=== PATIENT | female | born 1960 | race Hispanic/Latino ===

== ENCOUNTER 2018-09-18 10:19 | Emergency (ER) | payer SELFPAY ==
[2018-09-18] MEDS ORDERED: HABITROL TD PRN (11:12)
[2018-09-18] MEDS ORDERED: ATIVAN IV PRN ×3 (11:13)
[2018-09-18] MEDS ORDERED: VITAMIN B-1 100 MG, FOLVITE 1 MG, INFUVITE 10 ML, MAGNESIUM SULFATE 2 GM in NACL 0.9% 1... IV ONE (11:13)
--- NOTE | 2018-09-18 11:18 | Emergency Department Report ---
HPI - General Time Seen by Provider: 09/18/18 11:04 - HPI HPI: Room 17 The patient is a 58-year-old female presenting with a chief complaint of fall is on. Patient states she consumes approximately 1 pint of vodka daily and she last consumed just prior to coming to the ED. The patient is accompanied by her daughter who states the patient needs help with alcoholism. The patient is requesting placement in a detox facility. Patient complains of fatigue. Patient denies melena or bright red blood per rectum Location: [See above] Duration: [See above] Quality: [See above] Severity: [See above] Modifying factors: [see above] Context: [see above] Mode of transportation: [not driving] ED Past Medical Hx - Past Medical History Hx Arthritis: Yes Hx Psychiatric Treatment: Yes (Depression) Additional medical history: hypothyroid - Surgical History Additional Surgical History: L leg surgery. Neck. Sinus - Family History Family history: no significant - Social History Smoking Status: Current Every Day Smoker (1 pack per day) Substance Use Type: Alcohol (1 pint of vodka daily) - Medications Home Medications: Home Medications Medication Instructions Recorded Confirmed Last Taken Type Levothyroxine [Synthroid] 150 mcg PO QAM 10/09/14 10/09/14 10/08/14 History traZODone [Desyrel] 50 mg PO QHS 10/09/14 10/09/14 10/08/14 History Doxycycline Monohydrate 100 mg PO Q12H #42 capsule 04/08/15 Unknown Rx [Doxycycline Monohydrate CAP] ED Review of Systems ROS: Stated complaint: ALCOHOL ABUSE/MH EVAL Other details as noted in HPI Constitutional: no symptoms reported Eyes: denies: eye pain ENT: denies: throat pain Respiratory: no symptoms reported Cardiovascular: denies: chest pain Endocrine: no symptoms reported Gastrointestinal: denies: abdominal pain Physical Exam - Physical Exam Physical Exam: GENERAL: The patient is well-developed well-nourished female lying on stretcher not appearing to be in acute distress. [] HEENT: Normocephalic. Atraumatic. Extraocular motions are intact. Patient has moist mucous membranes. NECK: Supple. Trachea midline CHEST/LUNGS: Clear to auscultation. There is no respiratory distress noted. HEART/CARDIOVASCULAR: Regular. There is no tachycardia. There is no gallop rub or murmur. ABDOMEN: Abdomen is soft, nontender. Patient has normal bowel sounds. There is no abdominal distention. SKIN: There is no rash. There is no edema. There is no diaphoresis. NEURO: The patient is awake, alert, and oriented. The patient is cooperative. The patient has normal speech MUSCULOSKELETAL: There is no evidence of acute injury. RECTAL: Guaiac positive dark stool ED Medical Decision Making - Lab Data Result diagrams: 09/18/18 11:15 09/18/18 11:18 Laboratory Tests 09/18/18 09/18/18 09/18/18 11:15 11:18 11:18 WBC 8.9 RBC 1.85 L Hgb 7.6 L Hct 22.0 L MCV 119 H MCH 41 H MCHC 35 H RDW 14.0 Plt Count 116 L Lymph % (Auto) 24.2 [place] % (Auto) 4.1 Eos % (Auto) 0.6 Baso % (Auto) 0.5 Lymph # 2.2 [place] # 0.4 Eos # 0.1 Baso # 0.0 Seg Neutrophils % 70.6 H Seg Neutrophils # 6.3 Sodium 140 Potassium 3.3 L Chloride 94.7 L Carbon Dioxide 23 Anion Gap 26 BUN 8 Creatinine 0.5 L Estimated GFR > 60 BUN/Creatinine Ratio 16 Glucose 73 Calcium 8.1 L Total Bilirubin 2.60 H AST 313 H ALT 79 H Alkaline Phosphatase 260 H Total Protein 6.2 L Albumin 3.1 L Albumin/Globulin Ratio 1.0 TSH Free T4 Plasma/Serum Alcohol 0.30 H Blood Type Antibody Screen Crossmatch 09/18/18 09/18/18 11:18 12:16 WBC RBC Hgb Hct MCV MCH MCHC RDW Plt Count Lymph % (Auto) [place] % (Auto) Eos % (Auto) Baso % (Auto) Lymph # [place] # Eos # Baso # Seg Neutrophils % Seg Neutrophils # Sodium Potassium Chloride Carbon Dioxide Anion Gap BUN Creatinine Estimated GFR BUN/Creatinine Ratio Glucose Calcium Total Bilirubin AST ALT Alkaline Phosphatase Total Protein Albumin Albumin/Globulin Ratio TSH 46.760 H Free T4 0.39 L Plasma/Serum Alcohol Blood Type O POSITIVE Antibody Screen Negative Crossmatch See Detail - Differential Diagnosis alcoholism Critical Care Time: Yes Critical care time in (mins) excluding proc time.: 30 Critical care attestation.: If time is entered above; I have spent that time in minutes in the direct care of this critically ill patient, excluding procedure time. ED Disposition Clinical Impression: Alcoholism, GI bleed, Symptomatic anemia Disposition: OP ADMIT IP TO THIS HOSP Is pt being admited?: Yes Does the pt Need Aspirin: No Condition: Fair Referrals: PRIMARY CARE,MD [Primary Care Provider] - 3-5 Days Time of Disposition: 13:27 (hospitalist notified (Dr Elizondo))
[2018-09-18 11:30] LABS: Basophils % (Auto) 0.5 % (0.0-1.8); Eosinophils # (Auto) 0.1 K/mm3 (0.0-0.4); Eosinophils % (Auto) 0.6 % (0.0-4.3); Hemoglobin 7.6 gm/dl (10.1-14.3); Lymphocytes # (Auto) 2.2 K/mm3 (1.2-5.4); Lymphocytes % (Auto) 24.2 % (13.4-35.0); Mean Corpuscular HGB Conc 35 % (30-34); Mean Corpuscular Hemoglobin 41 pg (28-32); Mean Corpuscular Volume 119 fl (79-97); Monocytes # (Auto) 0.4 K/mm3 (0.0-0.8); Monocytes % (Auto) 4.1 % (0.0-7.3); Platelet Count 116 K/mm3 (140-440); Red Blood Count 1.85 M/mm3 (3.65-5.03)
[2018-09-18 11:53] LABS: Alanine Aminotransferase 79 units/L (7-56); Albumin 3.1 g/dL (3.9-5); BUN/Creatinine Ratio 16; Blood Urea Nitrogen 8 mg/dL (7-17); Calcium 8.1 mg/dL (8.4-10.2); Hemolysis Index 3
[2018-09-18 12:00] LABS: Free T4 (Free Thyroxine) 0.39 ng/dL (0.76-1.46)
[2018-09-18] MEDS ORDERED: NACL 0.9% 500 ML 500 ML IV ONE ×2 (13:24→15:23)
[2018-09-18] MEDS ORDERED: PROTONIX IV ONE (13:24)
--- NOTE | 2018-09-18 14:14 | Consultation ---
History of Present Illness - Reason for Consult Consult date: 09/18/18 Requesting physician: IVAN SHARIF - History of Present Illness 58 YO Female with Hypothyroidism, Noncompliance, OA, Depression ETOH Dependence presents with ETOH Intoxication. Pt seen and evaluated in ED and counseled regarding ETOH Cessation. Pt treated with IVF resuscitation, Thiamine,Folic Ac id, Multivitamin therapy. Pt drank Vodka prior to coming to ED. Case management consulted regarding Alcoholics Anonymous meeting in the area. Pt instructed to attend meeting at discharge. Past History Past Medical History: arthritis, hypothyroidism, other (depression) Past Surgical History: Other (left leg) Social history: , smoking, alcohol abuse. denies: prescription drug abuse, IV drug use Family history: no significant family history (reviewed) Medications and Allergies Allergies Allergy/AdvReac Type Severity Reaction Status Date / Time No Known Allergies Allergy Unverified 04/08/15 13:56 Home Medications Medication Instructions Recorded Confirmed Last Taken Type Levothyroxine [Synthroid] 150 mcg PO QAM 10/09/14 10/09/14 10/08/14 History traZODone [Desyrel] 50 mg PO QHS 10/09/14 10/09/14 10/08/14 History Doxycycline Monohydrate 100 mg PO Q12H #42 capsule 04/08/15 Unknown Rx [Doxycycline Monohydrate CAP] Active Meds: Active Medications Thiamine HCl 100 mg/ Folic Acid 1 mg/ Multivitamins/Minerals 10 ml/ Magnesium Sulfate 2 gm/ Sodium Chloride 1,015.2 mls @ 250 mls/hr IV ONCE ONE Stop: 09/18/18 15:16 Last Admin: 09/18/18 12:07 Dose: 250 mls/hr Documented by: Levothyroxine Sodium (Synthroid) 150 mcg PO QAM RAMA Lorazepam (Ativan) 2 mg IV Q1HR PRN PRN Reason: CIWA-Ar 8-15 Lorazepam (Ativan) 4 mg IV Q1HR PRN PRN Reason: CIWA-Ar 16-25 Lorazepam (Ativan) 4 mg IV Q15MIN PRN PRN Reason: CIWA-Ar >25 Nicotine (Habitrol) 14 mg TD ONCE PRN PRN Reason: Agitation Trazodone HCl (Desyrel) 50 mg PO QHS [facility] Review of Systems Constitutional: no weight gain, no fever, no chills, no sweats Ears, nose, mouth and throat: no ear pain, no ear discharge, no tinnitis, no decreased hearing, no nose pain Breasts: no change in shape, no swelling, no mass Cardiovascular: no chest pain, no orthopnea, no palpitations Respiratory: no cough, no cough with sputum, no excessive sputum, no hemoptysis, no dyspnea on exertion Gastrointestinal: no nausea, no vomiting, no constipation, no change in bowel habits, no hematemesis, no BRBPR, no melena, no hematochezia, no loss of appetite Genitourinary Female: no pelvic pain, no flank pain, no menorrhagia, no dysuria, no urinary frequency, no urgency, no stress incontinence Rectal: no pain, no incontinence, no bleeding Musculoskeletal: no neck stiffness, no neck pain, no shooting arm pain, no arm numbness/tingling, no low back pain, no leg numbness/tingling Integumentary: no rash, no pruritis, no redness, no sores, no wounds Neurological: no paralysis, no weakness, no parathesias Psychiatric: no anxiety, no memory loss, no change in sleep habits, no sleep disturbances, no insomnia, no change in appetite, no change in libido, no suicidal ideation, no disorientation, no hopelessness, no anhedonia, no anxiety attacks Endocrine: no cold intolerance, no heat intolerance, no polyphagia, no excessive thirst Hematologic/Lymphatic: no easy bruising, no easy bleeding, no lymphadenopathy, no lymphedema Allergic/Immunologic: no urticaria, no allergic rhinitis, no wheezing, no persistent infections, no anaphylaxis, no angioedema Exam - Constitutional Vitals: Temp Pulse Resp BP Pulse Ox 99.2 F 94 H 16 102/63 98 09/18/18 12:37 09/18/18 12:07 09/18/18 12:07 09/18/18 12:07 09/18/18 12:07 General appearance: Present: no acute distress - EENT Eyes: Present: PERRL ENT: hearing intact, clear oral mucosa - Neck Neck: Present: supple, normal ROM - Respiratory Respiratory effort: normal Respiratory: bilateral: CTA - Cardiovascular Heart Sounds: Present: S1 & S2. Absent: rub, click - Extremities Extremities: pulses symmetrical, No edema Peripheral Pulses: within normal limits - Abdominal General gastrointestinal: Present: soft, non-tender, non-distended, normal bowel sounds Female genitourinary: Present: normal - Integumentary Integumentary: Present: clear, warm, dry - Musculoskeletal Musculoskeletal: gait normal, strength equal bilaterally - Psychiatric Psychiatric: appropriate mood/affect, intact judgment & insight - Neurologic Neurologic: CNII-XII intact, moves all extremities Results - Labs CBC & Chem 7: 09/18/18 11:15 09/18/18 11:18 Labs: Abnormal lab results 09/18/18 09/18/18 09/18/18 Range/Units 11:15 11:18 11:18 RBC 1.85 L (3.65-5.03) M/mm3 Hgb 7.6 L (10.1-14.3) gm/dl Hct 22.0 L (30.3-42.9) % MCV 119 H (79-97) fl MCH 41 H (28-32) pg MCHC 35 H (30-34) % Plt Count 116 L (140-440) K/mm3 Seg Neutrophils % 70.6 H (40.0-70.0) % Potassium 3.3 L (3.6-5.0) mmol/L Chloride 94.7 L (98-107) mmol/L Creatinine 0.5 L (0.7-1.2) mg/dL Calcium 8.1 L (8.4-10.2) mg/dL Total Bilirubin 2.60 H (0.1-1.2) mg/dL AST 313 H (5-40) units/L ALT 79 H (7-56) units/L Alkaline Phosphatase 260 H (35-129) units/L Total Protein 6.2 L (6.3-8.2) g/dL Albumin 3.1 L (3.9-5) g/dL TSH (0.270-4.200) mlU/mL Free T4 (0.76-1.46) ng/dL Plasma/Serum Alcohol 0.30 H (0-0.07) % Crossmatch 09/18/18 09/18/18 Range/Units :18 12:16 RBC (3.65-5.03) M/mm3 Hgb (10.1-14.3) gm/dl Hct (30.3-42.9) % MCV (79-97) fl MCH (28-32) pg MCHC (30-34) % Plt Count (140-440) K/mm3 Seg Neutrophils % (40.0-70.0) % Potassium (3.6-5.0) mmol/L Chloride (98-107) mmol/L Creatinine (0.7-1.2) mg/dL Calcium (8.4-10.2) mg/dL Total Bilirubin (0.1-1.2) mg/dL AST (5-40) units/L ALT (7-56) units/L Alkaline Phosphatase (35-129) units/L Total Protein (6.3-8.2) g/dL Albumin (3.9-5) g/dL TSH 46.760 H (0.270-4.200) mlU/mL Free T4 0.39 L (0.76-1.46) ng/dL Plasma/Serum Alcohol (0-0.07) % Crossmatch See Detail Assessment and Plan - Patient Problems (1) Alcohol intoxication Current Visit: Yes Status: Acute Qualifiers: Complication of substance-induced condition: uncomplicated Qualified Code(s): F10.920 - Alcohol use, unspecified with intoxication, uncomplicated Plan to address problem: Pt discharged home and instructed to f/u pcp 1wk, GI prn for endoscopy, and screening colonoscopy, Thiamine, folic acid, multivitamin, AA F/U at discharge. Case management consulted.
--- NOTE | 2018-09-18 16:44 | Consultation ---
History of Present Illness - Reason for Consult Consult date: 09/18/18 Reason for consult: Mental Health Evaluation Requesting physician: IVAN SHARIF - Chief Complaint Chief complaint: "Drinking have become a problem for me" - History of Present Psychiatric Illness 58-year-old white female presented the ER for a fall and ETOH. Today the patient is calm and cooperative during the assessment. She stated a hx of depression and alcohol abuse (etoh). She stated that she drink alcohol (etoh) for 20 plus years. She stated that her alcohol consumption increased when she her some years ago. Per the patient, she like the taste of alcohol (etoh). She stated that she attempted suicide twice over 10 yrs ago by overdose because she was stressed and overwhelmed with life. She stated that she took several antidepressants for depression after her suicide attempt. She denies depression, SI/HI's and AVH's. She denies erratic sleep and a poor appetite. She denies any manic episodes in the past. She stated, "I have to stop drinking." She is aware of the medical implications of excessive alcohol (etoh) intake. The patient want 24 hours to determine if she want to start taking her home medication (antidepressant) for depression. Medications and Allergies Allergies Allergy/AdvReac Type Severity Reaction Status Date / Time No Known Allergies Allergy Unverified 04/08/15 13:56 Home Medications Medication Instructions Recorded Confirmed Last Taken Type Levothyroxine [Synthroid] 150 mcg PO SUTUTHSA 10/09/14 09/18/18 10/08/14 History ARIPiprazole [Abilify] 2 mg PO BID 09/18/18 09/18/18 Unknown History Folic Acid [Folvite] 1 mg PO QDAY 09/18/18 09/18/18 Unknown History Folic Acid [Folvite] 1 mg PO QDAY #30 tablet 09/18/18 Unknown Rx Levothyroxine [Synthroid] 125 mcg PO MOWEFR #30 tablet 09/18/18 Unknown Rx Multivitamin Tab [Multiple Vitamin 1 each PO QDAY #30 tablet 09/18/18 Unknown Rx TAB (Theragran)] Thiamine [Vitamin B-1] 100 mg PO QDAY #30 tablet 09/18/18 Unknown Rx Active Meds: Active Medications Levothyroxine Sodium (Synthroid) 150 mcg PO QAM RAMA Lorazepam (Ativan) 2 mg IV Q1HR PRN PRN Reason: CIWA-Ar 8-15 Lorazepam (Ativan) 4 mg IV Q1HR PRN PRN Reason: CIWA-Ar 16-25 Lorazepam (Ativan) 4 mg IV Q15MIN PRN PRN Reason: CIWA-Ar >25 Nicotine (Habitrol) 14 mg TD ONCE PRN PRN Reason: Agitation Trazodone HCl (Desyrel) 50 mg PO QHS [facility] Mental Status Exam - Vital signs Last Vital Signs Temp 98.2 F 09/18/18 15:27 Pulse 91 H 09/18/18 15:27 Resp 13 09/18/18 15:27 BP 85/57 09/18/18 15:27 Pulse Ox 100 09/18/18 15:27 - Exam Narrative exam: MSE: Appearance: calm, cooperative Behavior: regular eye contact Speech: regular rate and tone Mood: "okay" Affect: congruent to mood Thought Process: circumstantial Thought Content: denies SI/HI's and AVH's Motor Activity: lying in bed Cognition: A/O x3 Insight: fair Judgment: fair Results Result Diagrams: 09/18/18 11:15 09/18/18 11:18 Abnormal lab results 09/18/18 09/18/18 09/18/18 Range/Units 11:15 11:18 11:18 RBC 1.85 L (3.65-5.03) M/mm3 Hgb 7.6 L (10.1-14.3) gm/dl Hct 22.0 L (30.3-42.9) % MCV 119 H (79-97) fl MCH 41 H (28-32) pg MCHC 35 H (30-34) % Plt Count 116 L (140-440) K/mm3 Seg Neutrophils % 70.6 H (40.0-70.0) % Potassium 3.3 L (3.6-5.0) mmol/L Chloride 94.7 L (98-107) mmol/L Creatinine 0.5 L (0.7-1.2) mg/dL Calcium 8.1 L (8.4-10.2) mg/dL Total Bilirubin 2.60 H (0.1-1.2) mg/dL AST 313 H (5-40) units/L ALT 79 H (7-56) units/L Alkaline Phosphatase 260 H (35-129) units/L Total Protein 6.2 L (6.3-8.2) g/dL Albumin 3.1 L (3.9-5) g/dL TSH (0.270-4.200) mlU/mL Free T4 (0.76-1.46) ng/dL Plasma/Serum Alcohol 0.30 H (0-0.07) % Crossmatch 09/18/18 09/18/18 Range/Units 11:18 12:16 RBC (3.65-5.03) M/mm3 Hgb (10.1-14.3) gm/dl Hct (30.3-42.9) % MCV (79-97) fl MCH (28-32) pg MCHC (30-34) % Plt Count (140-440) K/mm3 Seg Neutrophils % (40.0-70.0) % Potassium (3.6-5.0) mmol/L Chloride (98-107) mmol/L Creatinine (0.7-1.2) mg/dL Calcium (8.4-10.2) mg/dL Total Bilirubin (0.1-1.2) mg/dL AST (5-40) units/L ALT (7-56) units/L Alkaline Phosphatase (35-129) units/L Total Protein (6.3-8.2) g/dL Albumin (3.9-5) g/dL TSH 46.760 H (0.270-4.200) mlU/mL Free T4 0.39 L (0.76-1.46) ng/dL Plasma/Serum Alcohol (0-0.07) % Crossmatch See Detail All other labs normal. Assessment and Plan Assessment and plan: Impression; Alcohol Use DO. Hx of Depression. Today the patient is calm and cooperative during the assessment. LF's elevated. TSH 46.7. Mild to Moderate tremors noted (etoh). Recommendation/Plan: Continue CIWA. Discussed risk/benefits of antidepressants. The patient want 24 hours to determine if she want to start taking her medication for depression. Discussed the importance to abstain from alcohol consumption (etoh) with the patient. Will follow up with the patient daily. Dispo: The patient can follow up with [facility] for outpatient psy/rehab services when discharged. Staffed with Dr Stroud.
[2018-09-18 16:47] LABS: Bacteria,Urine 4+ /HPF (Negative); Bilirubin,Urine NEG (Negative); Blood,Urine SM (Negative); Color,Urine Amber (Yellow); Protein,Urine <15 mg/dL mg/dL (Negative)
[2018-09-18 16:52] LABS: Amphetamine Screen,Urine PRESUMPTIVE NEGATIVE; Benzodiazepines Screen,Urine PRESUMPTIVE NEGATIVE; Cannabinoid Screen,Urine PRESUMPTIVE NEGATIVE; Cocaine Screen,Urine PRESUMPTIVE NEGATIVE; Methadone Screen,Urine PRESUMPTIVE NEGATIVE; Opiate Screen,Urine PRESUMPTIVE NEGATIVE
[2018-09-18] MEDS ORDERED: ATIVAN ONE (18:45)
[2018-09-18] MEDS ORDERED: VITAMIN B-1 100 MG, FOLVITE 1 MG, INFUVITE 10 ML in NACL 0.9% 1000 ML 1,000 ML IV ONE (18:50)
[2018-09-18] MEDS ORDERED: NACL 0.45% 2,000 ML IV SCH (19:00)
[2018-09-18] MEDS ORDERED: NACL 0.45% 1000 ML 1,000 ML IV ONE (19:53)
[2018-09-18] MEDS ORDERED: NACL 0.45% 1000 ML 1,000 ML IV SCH (21:00)
[2018-09-18] MEDS ORDERED: DESYREL PO SCH (22:00)
[2018-09-19 02:50] VITALS: BP 113/79
[2018-09-19] MEDS ORDERED: SYNTHROID PO SCH (10:00)
[2018-09-19] MEDS ORDERED: SYNTHROID IV SCH (13:31)
== END 2018-09-19 02:15 | disposition admitted as inpatient to this hospital (09) ==
LOC: ED 10:19
DX: F10.129 Alcohol abuse with intoxication, unspecified (principal); K92.2 Gastrointestinal hemorrhage, unspecified; D64.89 Other specified anemias
CPT/HCPCS: 36415; 36430; 80053; 80307; 81001; 82271; 84439; 84443; 85025; 86850; 86900; 86901; 86920; 96365; 96375; 99291; C9113; G0480; J2060; J3411; J3475; J7030; J7040; P9016; 80320